=== PATIENT | female | born 1975 | race Caucasian/White ===

== ENCOUNTER 2022-05-22 09:03 | Emergency (ER) | payer OTHER ==
[~2022-05-22] VITALS: Ht 172.7 cm; Wt 77.0 kg
[2022-05-22] MEDS ORDERED: acetaminophen 325mg tablet PO ONE (09:25)
[2022-05-22] MEDS ORDERED: ketorolac trometh. 30mg/ml inj. IV ONE (09:25)
[2022-05-22] MEDS ORDERED: proCHLORperazine 10 MG/2 ml inj IV ONE (09:25)
[2022-05-22] MEDS ORDERED: normal saline 1000ML IV soln IVB ONE (09:25)
--- NOTE | 2022-05-22 09:25 | NUR ---
FIRST CONTACT AO4 PHOTOPHOBIC. DENIES VISUAL OUR AUDITORY ISSUES. RESP EVEN UNLABORED. SKIN W/D/I PINK.
[2022-05-22] MEDS ORDERED: SUMAtriptan succ. 6 MG/0.5ml vial SQ ONE (09:30)
--- NOTE | 2022-05-22 10:34 | NUR ---
PT REPORTS NO RELIEF FROM CURRENT TREATMENT. MADE AWARE. AWAITING NEW ORDERS.
[2022-05-22] MEDS ORDERED: diphenhydrAMINE 50 mg/ml inj IV ONE (10:40)
[2022-05-22] MEDS ORDERED: metoclopramide 5 mg/ml inj IV ONE (10:40)
[2022-05-22] MEDS ORDERED: haloperidol lactate 5mg/ml inj IM ONE (10:40)
[2022-05-22] MEDS ORDERED: ONDA4TAB12 PO (11:25)
--- NOTE | 2022-05-22 11:26 | NUR ---
Note undone in EDM - 05/22/22 at 1127 by GASTEJA ECHO AT BEDSIDE. PT IS AO4 NO CHANGES. RESP EVEN UNLABORED.
--- NOTE | 2022-05-22 11:34 | NUR ---
pt states she is feeling better albeit drowsy. dc papers standing by.
[2022-05-22 11:46] VITALS: BP 127/76
== END 2022-05-22 11:48 | disposition home or self-care (01) ==
LOC: ER 09:04
DX: G43.909 Migraine, unspecified, not intractable, without status migrainosus (principal); R11.2 Nausea with vomiting, unspecified; F12.90 Cannabis use, unspecified, uncomplicated; Z90.49 Acquired absence of other specified parts of digestive tract; Z90.710 Acquired absence of both cervix and uterus; Z72.89 Other problems related to lifestyle; Z88.0 Allergy status to penicillin; Z88.1 Allergy status to other antibiotic agents; Z79.899 Other long term (current) drug therapy
CPT/HCPCS: 96361; 96372; 96374; 96375; 99284; J0780; J1200; J1630; J1885; J2765; J3030; J7030